=== PATIENT | male | born 1950 | race Caucasian/White ===

== ENCOUNTER 2019-07-25 08:33 | Emergency (ER) | payer OTHER ==
[~2019-07-25] VITALS: Ht 177.8 cm; Wt 113.4 kg
[2019-07-25] MEDS ORDERED: AMOXICILLIN500 M3 PO (08:56)
[2019-07-25] MEDS ORDERED: FLONASE ALLERG9.9 ML NAS (09:10)
== END 2019-07-25 09:00 | disposition home or self-care (01) ==
LOC: ED 08:33
DX: J01.90 Acute sinusitis, unspecified (principal); B96.89 Other specified bacterial agents as the cause of diseases classified elsewhere; E66.9 Obesity, unspecified; E11.9 Type 2 diabetes mellitus without complications

== ENCOUNTER → 2020-11-16 | Outpatient (CLI) | payer OTHER ==
[~2020-11-16] MED LIST: AMOXICILLIN500 M3 PO; FLONASE ALLERG9.9 ML NAS
== END | disposition home or self-care (01) ==
LOC: US 15:23
PROVIDERS: ATTEND Family Medicine
DX: I65.23 Occlusion and stenosis of bilateral carotid arteries (principal)

== ENCOUNTER → 2020-12-06 | Outpatient (CLI) | payer OTHER | END | disposition home or self-care (01) | LOC: CARD 08:30 | PROVIDERS: ATTEND Family Medicine | DX: I51.7 Cardiomegaly (principal); E65 Localized adiposity; R42 Dizziness and giddiness; R55 Syncope and collapse ==

== ENCOUNTER 2021-08-03 12:44 | Emergency (ER) | payer OTHER ==
[2021-08-03 14:17] LABS: BASO # 0.1 10*3/uL (0.0-0.1); BASO % 0.7 % (0.0-1.0); EOS # 0.2 10*3/uL (0.0-0.4); EOS % 2.4 % (1.0-4.0); HEMATOCRIT 39.5 % (42.0-52.0); LYMPH % 20.6 % (27.0-41.0); MEAN CELL VOLUME 95.6 fl (80.0-94.0); MEAN CORPUSCULAR HGB 32.9 pg (27.0-31.0); MEAN CORPUSCULAR HGB CONC 34.4 g/dl (33.0-37.0); MEAN PLATELET VOLUME 9.9 fl (9.6-12.3); MONO # 0.8 10*3/uL (0.1-1.0); NEUT # 6.4 10*3/uL (2.3-7.9); NEUT % 68.1 % (47.0-73.0); PLATELET COUNT AUTOMATED 380 10*3/uL (130-400); RED BLOOD COUNT 4.13 10*6/uL (4.50-5.90); WHITE BLOOD COUNT 9.5 10*3/uL (4.8-10.8)
[2021-08-03 14:34] LABS: ALBUMIN 3.3 gm/dl (3.1-4.5); BUN 12 mg/dl (7-24); CHLORIDE 107 mmol/L (98-107); POTASSIUM 3.8 mmol/L (3.5-5.1); SGOT/AST 17 IU/L (3-35); SGPT/ALT 20 U/L (12-78); SODIUM 138 mmol/L (136-145)
[2021-08-03 14:36] LABS: ALKALINE PHOSPHATASE 100 U/L (45-117); CREATININE 1.16 mg/dL (0.70-1.30); TOTAL PROTEIN 7.4 gm/dL (6.4-8.2)
== END 2021-08-03 16:47 | disposition home or self-care (01) ==
LOC: ED 12:44
PROVIDERS: Nurse Practitioner Family
DX: M54.50 Low back pain, unspecified (principal); E11.9 Type 2 diabetes mellitus without complications; W18.2XXA Fall in (into) shower or empty bathtub, initial encounter; Y93.89 Activity, other specified; Y92.89 Other specified places as the place of occurrence of the external cause; Y99.8 Other external cause status

== ENCOUNTER → 2021-12-31 | Day surgery (SDC) | payer OTHER ==
[~2021-12-31] VITALS: Ht 177.8 cm; Wt 117.9 kg
[~2021-12-31] MED LIST changes: +GOOD SENSE ASP325 MG PO; +LISINOPRIL2.5 MG PO; +LOVASTATIN20 MG PO; +METFORMIN HYD1000 MG PO; +OMEPRAZOLE20 M2 PO; +OZEMPIC1 MG/0.71 SQ; +PROBIOTIC1 EAC4 PO; +VITAMIN C500 M8 PO; +VITAMIN D325 MCG PO; +VITAMIN E67 MG PO
[2021-12-31 08:03] VITALS: BP 144/89
[2021-12-31 08:50] VITALS: BP 138/72
[2021-12-31 09:05] VITALS: BP 120/68
[2021-12-31 09:20] VITALS: BP 135/79
== END | disposition home or self-care (01) ==
LOC: SDC 12-27 09:30
PROVIDERS: ATTEND Surgery
DX: Z12.11 Encounter for screening for malignant neoplasm of colon (principal); K62.1 Rectal polyp; K29.50 Unspecified chronic gastritis without bleeding; Z86.010 Personal history of colon polyps; E11.9 Type 2 diabetes mellitus without complications; Z87.891 Personal history of nicotine dependence; Z79.84 Long term (current) use of oral hypoglycemic drugs; Z79.899 Other long term (current) drug therapy

== ENCOUNTER 2022-10-29 16:14 | Emergency (ER) | payer OTHER ==
[~2022-10-29] VITALS: Ht 177.8 cm; Wt 113.4 kg
[~2022-10-29 16:14] MED LIST changes: +ATORVASTATIN CA80 M1 PO; +ETODOLAC300 M1 PO; +MULTI-VITAMIN1 EACH PO; +NOVOLOG MI100 UNIT/1 SC; -OMEPRAZOLE20 M2 PO; +OMEPRAZOLE40 MG PO; +PHARMASSURE FO0.4 MG PO; +ROSUVASTATIN CA20 MG PO; +TAMSULOSIN HCL0.4 MG PO
[2022-10-29] MEDS ORDERED: HYDROCODONE-AC1 EAC1 PO (22:12)
== END 2022-10-29 22:32 | disposition home or self-care (01) ==
LOC: ED 16:14
DX: M54.50 Low back pain, unspecified (principal); Z87.891 Personal history of nicotine dependence; Z90.89 Acquired absence of other organs; Z79.899 Other long term (current) drug therapy; W18.39XA Other fall on same level, initial encounter; Y93.89 Activity, other specified; Y92.89 Other specified places as the place of occurrence of the external cause; Y99.8 Other external cause status

== ENCOUNTER → 2023-10-29 | Outpatient (CLI) | payer OTHER ==
[~2023-10-29] MED LIST changes: +HYDROCODONE-AC1 EAC1 PO
== END | disposition home or self-care (01) ==
LOC: US 02:37
PROVIDERS: ATTEND Nurse Practitioner Family
DX: K76.0 Fatty (change of) liver, not elsewhere classified (principal); M54.50 Low back pain, unspecified; I10 Essential (primary) hypertension; E11.9 Type 2 diabetes mellitus without complications

== ENCOUNTER 2025-06-28 14:39 | Inpatient (IN) | payer OTHER ==
[~2025-06-28] VITALS: Ht 177.8 cm; Wt 117.9 kg
[2025-06-28] VITALS (25 sets, daily range): BP systolic 78–118; BP diastolic 44–95
[2025-06-28] MEDS ORDERED: SODIUM CHLORIDE 0.9% 1,000 ML IV SCH (15:05)
[2025-06-28 15:42] LABS: MEAN CELL VOLUME 100.5 fl (80.0-94.0); MEAN CORPUSCULAR HGB 32.6 pg (27.0-31.0); MEAN PLATELET VOLUME 10.7 fl (9.6-12.3); NUCLEATED RED BLOOD CELL 0.0 % (0.0-0.0); NUCLEATED RED BLOOD CELL 0.0 10*3/uL (0.0-0.0); PLATELET COUNT AUTOMATED 367 10*3/uL (130-400); RED CELL DISTRI WIDTH 13.6 % (0-14.5)
[2025-06-28 15:43] LABS: MANUAL DIFF REFLEX YES
[2025-06-28 16:04] LABS: PLATELET SUFFICIENCY NORMAL (NORMAL)
[2025-06-28 16:05] LABS: BUN 85.0 mg/dl (9-23); CPK 401.0 U/L (34-171); SGPT/ALT 17.0 U/L (5-49)
[2025-06-28 16:32] LABS: BILIRUBIN Negative (Negative); BLOOD Trace-Intact (Negative); CLARITY Clear (Clear); COLOR Yellow (Yellow); KETONE Negative (Negative); LEUKO ESTERASE Negative (Negative); NITRITE Negative (Negative); PH 5.0 (4.5-8.0); SPECIFIC GRAVITY 1.020 (1.001-1.030); UROBILINOGEN 0.2 E.U./dl (0.0-1.0)
[2025-06-28 16:39] LABS: WBC 0-2 wbc/hpf (0-5)
[2025-06-28 16:40] LABS: BACTERIA TRACE; MUCOUS 1+
[2025-06-28] MEDS ORDERED: MAGNESIUM400 M1 PO (16:42)
[2025-06-28] MEDS ORDERED: ROSUVASTATIN CAL5 MG PO (16:43)
[2025-06-28] MEDS ORDERED: LYRICA150 M1 PO (16:43)
[2025-06-28] MEDS ORDERED: SYNJARDY 12.5-1 EAC1 PO (16:44)
[2025-06-28] MEDS ORDERED: ASPIRIN81 M1 PO (16:44)
[2025-06-28] MEDS ORDERED: LASIX40 MG PO (16:45)
[2025-06-28] MEDS ORDERED: MELOXICAM7.5 MG PO (16:45)
[2025-06-28] MEDS ORDERED: SODIUM CHLORIDE 0.9% 1,000 ML IV ONE ×4 (17:25→17:45)
[2025-06-28] MEDS ORDERED: DEXTROSE 50% 25 GM/50 ML VIAL IV PRN (17:35)
[2025-06-28] MEDS ORDERED: DEXTROSE 50% 25 GM/50 ML VIAL IV ONE (17:45)
[2025-06-28] MEDS ORDERED: INSULIN REGULAR, HUMAN 1 UNIT/0.01 ML IV ONE (17:45)
[2025-06-28] MEDS ORDERED: Naloxone Hydrochloride 2 MG/2 ML SYR IV ONE (17:55)
[2025-06-28] MEDS ORDERED: Naloxone Hydrochloride 0.4 MG/ML VIAL IV ONE (18:00)
[2025-06-28] MEDS ORDERED: NOREPINEPHRINE BITARTRATE/D5W 250 ML IV SCH (18:00)
[2025-06-28 18:02] LABS: BUN 84.0 mg/dl (9-23)
[2025-06-28 18:16] LABS: URINE AMPHETAMINES Negative (1000ng/ml); URINE BARBITURATES Negative (200ng/ml); URINE BENZODIAZEPINES Negative (200ng/ml); URINE CANNABINOIDS (THC) Negative (50ng/ml); URINE COCAINE Negative (300ng/ml); URINE METHADONE Negative (300ng/ml); URINE OPIATES Negative (300ng/ml); URINE PHENCYCLIDINE Negative (25ng/ml)
[2025-06-28] MEDS ORDERED: DEXTROSE 50% 25 GM/50 ML SYR IV ONE (18:25)
[2025-06-28] MEDS ORDERED: HEPARIN SODIUM 5,000 UNIT/ML VIAL SC SCH (22:00)
[2025-06-28] MEDS ORDERED: INSULIN LISPRO 1 UNIT/0.01 ML SQ SCH (22:00)
[2025-06-28 22:31] LABS: BUN 76.0 mg/dl (9-23)
[2025-06-29] VITALS (59 sets, daily range): BP systolic 83–128; BP diastolic 38–79
[2025-06-29 00:33] LABS: ABG O2 SATURATION 96.4 % (94.0-98.0); ARTERIAL BLOOD GAS PH 7.295 (7.350-7.450); ARTERIAL BLOOD GAS PO2 97.6 mmHg (83.0-108.0)
[2025-06-29 00:34] LABS: ABG BASE EXCESS -7.8 mmol/L (-2.0-3.0)
[2025-06-29] MEDS ORDERED: HEEL PROTECTOR DEVICE ONE (01:27)
[2025-06-29] MEDS ORDERED: FOAM BANDAGE HEEL T ONE (01:27)
[2025-06-29 04:38] LABS: BASO # 0.0 10*3/uL (0.0-0.1); BASO % 0.4 % (0.0-1.0); EOS # 0.1 10*3/uL (0.0-0.4); EOS % 1.0 % (1.0-4.0); MEAN CELL VOLUME 101.3 fl (80.0-94.0); MEAN CORPUSCULAR HGB 32.7 pg (27.0-31.0); MEAN PLATELET VOLUME 10.5 fl (9.6-12.3); MONO # 1.4 10*3/uL (0.1-1.0); MONO % 12.5 % (3.0-9.0); NEUT # 7.9 10*3/uL (2.3-7.9); NEUT % 69.5 % (47.0-73.0); NUCLEATED RED BLOOD CELL 0.0 % (0.0-0.0); NUCLEATED RED BLOOD CELL 0.0 10*3/uL (0.0-0.0); PLATELET COUNT AUTOMATED 346 10*3/uL (130-400); RED CELL DISTRI WIDTH 13.6 % (0-14.5)
[2025-06-29 07:24] LABS: CPK 306.0 U/L (34-171); SGPT/ALT 15.0 U/L (5-49)
[2025-06-29 07:25] LABS: BUN 65.0 mg/dl (9-23)
[2025-06-29 07:36] LABS: LDL CHOLESTEROL 45.0 mg/dL (9-159)
[2025-06-29] MEDS ORDERED: SODIUM CHLORIDE 0.9% 1,000 ML IV ONE (09:10)
[2025-06-29] MEDS ORDERED: ACETAMINOPHEN 325 MG TAB PO PRN (10:55)
[2025-06-29] MEDS ORDERED: Ondansetron Hydrochloride 4 MG/2 ML VIAL IV PRN (11:00)
[2025-06-29 18:03] LABS: BUN 54.0 mg/dl (9-23)
[2025-06-29] MEDS ORDERED: DEXTROSE 50% 25 GM/50 ML VIAL IV ONE (18:20)
[2025-06-29] MEDS ORDERED: SODIUM POLYSTYRENE SULFONATE 15 GM/60 ML BOT PO ONE (18:20)
[2025-06-29] MEDS ORDERED: Albuterol Sulfate 2.5 MG/0.5 ML VIAL NEB ONE (18:20)
[2025-06-29] MEDS ORDERED: INSULIN REGULAR, HUMAN 1 UNIT/0.01 ML IV ONE (18:20)
[2025-06-29 21:55] LABS: BUN 46.0 mg/dl (9-23)
[2025-06-30] VITALS: BP 131/72
[2025-06-30 04:00] VITALS: BP 113/51
[2025-06-30 04:26] LABS: BASO # 0.0 10*3/uL (0.0-0.1); BASO % 0.4 % (0.0-1.0); EOS # 0.1 10*3/uL (0.0-0.4); EOS % 1.1 % (1.0-4.0); MEAN CELL VOLUME 99.4 fl (80.0-94.0); MEAN CORPUSCULAR HGB 32.0 pg (27.0-31.0); MEAN PLATELET VOLUME 10.4 fl (9.6-12.3); MONO # 1.1 10*3/uL (0.1-1.0); MONO % 11.5 % (3.0-9.0); NEUT # 6.3 10*3/uL (2.3-7.9); NEUT % 67.0 % (47.0-73.0); NUCLEATED RED BLOOD CELL 0.0 % (0.0-0.0); NUCLEATED RED BLOOD CELL 0.0 10*3/uL (0.0-0.0); PLATELET COUNT AUTOMATED 292 10*3/uL (130-400); RED CELL DISTRI WIDTH 13.5 % (0-14.5)
[2025-06-30 04:50] LABS: BUN 46.0 mg/dl (9-23); SGPT/ALT 19.0 U/L (5-49)
[2025-06-30] MEDS ORDERED: OMEPRAZOLE 20 MG CAP PO SCH (06:00)
[2025-06-30 07:55] VITALS: BP 133/75
[2025-06-30] MEDS ORDERED: SODIUM CHLORIDE 0.9% 1,000 ML IV ONE (09:00)
[2025-06-30] MEDS ORDERED: MAGNESIUM OXIDE 400 MG TAB PO SCH (10:00)
[2025-06-30] MEDS ORDERED: ASPIRIN ENTERIC COATED 81 MG TAB PO SCH (10:00)
[2025-06-30 11:45] VITALS: BP 115/60
[2025-06-30 16:00] VITALS: BP 120/64
[2025-06-30 20:00] VITALS: BP 119/63
[2025-07-01] VITALS: BP 126/66
[2025-07-01 06:14] LABS: BASO # 0.0 10*3/uL (0.0-0.1); BASO % 0.5 % (0.0-1.0); EOS # 0.2 10*3/uL (0.0-0.4); EOS % 2.6 % (1.0-4.0); MEAN CELL VOLUME 100.0 fl (80.0-94.0); MEAN CORPUSCULAR HGB 32.0 pg (27.0-31.0); MEAN PLATELET VOLUME 10.8 fl (9.6-12.3); MONO # 1.1 10*3/uL (0.1-1.0); MONO % 12.5 % (3.0-9.0); NEUT # 4.9 10*3/uL (2.3-7.9); NEUT % 58.1 % (47.0-73.0); NUCLEATED RED BLOOD CELL 0.0 % (0.0-0.0); NUCLEATED RED BLOOD CELL 0.0 10*3/uL (0.0-0.0); PLATELET COUNT AUTOMATED 288 10*3/uL (130-400); RED CELL DISTRI WIDTH 13.3 % (0-14.5)
[2025-07-01 06:31] LABS: BUN 30 mg/dl (9-23)
[2025-07-01 08:00] VITALS: BP 129/81
[2025-07-01 10:11] LABS: ABG BASE EXCESS -2.9 mmol/L (-2.0-3.0); ABG O2 SATURATION 94.5 % (94.0-98.0); ARTERIAL BLOOD GAS PH 7.43 (7.350-7.450); ARTERIAL BLOOD GAS PO2 69.8 mmHg (83.0-108.0)
[2025-07-01 12:00] VITALS: BP 113/59
[2025-07-01 16:00] VITALS: BP 131/64
== END 2025-07-01 20:55 | disposition home or self-care (01) | DRG 871 ==
LOC: ED 14:39 → EDHOLD 17:23 → ICCU 17:23 → EDHOLD 18:01 → ICCU 18:06
PROVIDERS: Emergency Medicine; Family Medicine; Student in an Organized Health Care Education/Training Program; ADMIT Internal Medicine; ATTEND Internal Medicine
PROC: 5A09357 Assistance with Respiratory Ventilation, Less than 24 Consecutive Hours, Continuous Positive Airway Pressure (ICD-10-PCS; principal; 2025-06-29)
DX: A41.9 Sepsis, unspecified organism (principal); G93.41 Metabolic encephalopathy; N17.0 Acute kidney failure with tubular necrosis; R65.21 Severe sepsis with septic shock; E87.20 Acidosis, unspecified; N39.0 Urinary tract infection, site not specified; F11.929 Opioid use, unspecified with intoxication, unspecified; E87.5 Hyperkalemia; S80.212A Abrasion, left knee, initial encounter; I95.9 Hypotension, unspecified; K21.9 Gastro-esophageal reflux disease without esophagitis; I10 Essential (primary) hypertension; S80.02XA Contusion of left knee, initial encounter; E11.65 Type 2 diabetes mellitus with hyperglycemia; E78.2 Mixed hyperlipidemia; L89.511 Pressure ulcer of right ankle, stage 1; Z79.899 Other long term (current) drug therapy; Z79.01 Long term (current) use of anticoagulants; Z79.2 Long term (current) use of antibiotics; Z79.4 Long term (current) use of insulin; Z87.891 Personal history of nicotine dependence; Z81.8 Family history of other mental and behavioral disorders; Z80.8 Family history of malignant neoplasm of other organs or systems; X58.XXXA Exposure to other specified factors, initial encounter; Y93.89 Activity, other specified; Y92.89 Other specified places as the place of occurrence of the external cause; Y99.8 Other external cause status